=== PATIENT | female | born 1980 | race Caucasian/White ===

== ENCOUNTER → 2017-02-07 | Outpatient (CLI) | payer BC ==
--- NOTE | 2017-02-07 09:24 | RADRPT ---
PROCEDURE: RIGHT knee x-ray CLINICAL INDICATION: PAIN TECHNIQUE: AP, lateral, patellar and oblique views of the knee were obtained. 4 views were obtain ed. COMPARISON: None FINDINGS: There are lag screws involving the distal right femur and proximal right tibia consistent with previ ous ACL repair. No evidence of acute fracture dislocation or patellar subluxation. There is mild d egenerative joint disease right knee best demonstrated in the medial compartment. The bony minerali zation is normal without focal bony blastic or lytic lesions. No evidence of a right knee joint eff usion. IMPRESSION: 1. ACL repair changes as above. 2. 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 RPTAT:AAJJ Physician Layla Date Time Electronically viewed and signed by Rd Burleson Physician on 02/07/2017 09:24 /
== END | disposition home or self-care (01) ==
LOC: HKI 09:12
PROVIDERS: ATTEND Orthopaedic Surgery
DX: M25.561 Pain in right knee (principal); M17.11 Unilateral primary osteoarthritis, right knee
CPT/HCPCS: G0463